=== PATIENT | female | born 1930 | race Hispanic/Latino ===

== ENCOUNTER 2017-11-05 17:03 | Inpatient (IN) | payer MEDICARE, OTHER ==
[2017-11-05 17:11] VITALS: BMI 26.4
[2017-11-05] MEDS ORDERED: Sodium Chloride 0.9% 1,000 ML IV STA (17:55)
--- NOTE | 2017-11-05 18:10 | ED PDOC ---
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 Per the patient, she had been experiencing persistent headache that have been gradual in onset, non-radiating with associated photophobia and phonophobia. According to the patient's daughter, the patient had 2 episodes of non-bloody, non-bilious emesis today. She denies any recent falls, trauma, neck pain, chest pain, shortness of breath, changes in gait or focal weakness in the extremities. The patient admits to lower leg edema that is chronic in nature, but has progressively worsened in the past couple of days. She denies taking any medications for her pain. She denies any syncopal episodes, back pain, fevers, chills, sick contacts or abdominal pain. PCP: Dr. Aakash Gonzalez Symptom Course: Worsening Quality: Aching Severity Level: Moderate Activities at Onset: Light Context: Home Past Medical History - Provider Review Nursing Documentation Reviewed: Yes - Travel History Have you recently traveled outside [place] w/in the past 3 mons?: No - Infectious Disease Hx of Infectious Diseases: None - Cardiac Hx Hypertension: Yes Other/Comment: Leg swelling - Psychiatric Hx Substance Use: No - Surgical History Hx Cholecystectomy: Yes - Anesthesia Hx Anesthesia: Yes Hx Anesthesia Reactions: No Hx Malignant Hyperthermia: No Family/Social History - Physician Review Nursing Documentation Reviewed: Yes Family/Social History: Unknown Family HX Smoking Status: Never Smoked Hx Alcohol Use: No Hx Substance Use: No Allergies/Home Meds Allergies/Adverse Reactions: Allergies No Known Allergies Allergy (Verified 11/05/17 17:22) Home Medications: Home Meds Medication Instructions Recorded Confirmed Celecoxib [Celebrex] 1 tab PO DAILY 11/05/17 11/05/17 Celecoxib [Celebrex] 200 mg PO DAILY 11/05/17 11/05/17 Linaclotide [Linzess] 1 tab PO DAILY 11/05/17 11/05/17 Linaclotide [Linzess] 72 mcg PO DAILY 11/05/17 11/05/17 Losartan/Hydrochlorothiazide 1 each PO DAILY 11/05/17 11/05/17 [Losartan-Hctz 100-25 mg Tab] Losartan/Hydrochlorothiazide 1 tab PO DAILY 11/05/17 11/05/17 [Losartan-Hctz 100-25 mg Tab] Solifenacin Succinate [Vesicare] 1 tab PO DAILY 11/05/17 11/05/17 Valsartan/Hydrochlorothiazide 1 tab PO DAILY 11/05/17 11/05/17 [Diovan Hct 160-12.5 mg Tab] Review of Systems - Review of Systems Eyes: Photophobia. absent: Eye Pain ENT: absent: Hearing Changes, Tinnitus Respiratory: absent: SOB, Cough, Wheezing Cardiovascular: Edema. absent: Chest Pain, Palpitations, Calf Pain Gastrointestinal: Constipation, Nausea, Vomiting. absent: Abdominal Pain Genitourinary Female: absent: Dysuria, Hematuria Musculoskeletal: absent: Arthralgias, Neck Pain Skin: absent: Rash, Skin Lesions Neurological: Headache, Dizziness. absent: Focal Weakness, Gait Changes, Facial Droop, Disequilibrium Physical Exam Vital Signs Reviewed: Yes Vital Signs Temp Pulse Resp BP Pulse Ox 11/05/17 17:03 97.5 F L 81 18 185/93 H 100 Mental Status: Positive for: Alert and Oriented X 3 Finger Stick Blood Glucose: 166 - Systems Exam Head: Present: Atraumatic, Normocephalic Mouth: Present: Moist Mucous Membranes Neck: Present: Normal Range of Motion. No: Meningeal Signs, MIDLINE TENDERNESS , Paraspinal Tenderness Respiratory/Chest: Present: Clear to Auscultation, Good Air Exchange. No: Respiratory Distress, Wheezes Cardiovascular: Present: Regular Rate and Rhythm, Normal S1, S2, Peripheal Pulses Present. No: Murmurs Abdomen: Present: Normal Bowel Sounds. No: Tenderness, Distention, Peritoneal Signs Back: No: CVA Tenderness, Midline Tenderness, Paraspinal Tenderness Lower Extremity: Present: Normal Inspection, Edema, NORMAL PULSES. No: CALF TENDERNESS Neurological: Present: GCS=15, CN II-XII Intact, Speech Normal Skin: Present: Warm, Dry, Rashes Psychiatric: Present: Alert, Oriented x 3, Normal Insight, Normal Concentration Medical Decision Making ED Course and Treatment: Impression 86 yo F w/ GOEL gradual in onset with nausea & emesis NIHSS: 0 Given patient was complaining of GOEL and dizziness, hypertensive urgency/ emergency must be heavily considered. CTH will be performed as well as serial neuro assessments to observe any changes in neuro exam. Differential Diagnoses Include but is not limited to: Migraine Hypertensive urgency/emergency Sepsis PNA UTI CVA(posterior circulation stroke) TIA Plan --Labs --IVF --Reglan --CTH --CXR --EKG Progress Notes 11/05/17 19:21 Patient reports mild relief of headache, but requests additional medication. CTH negative for intracranial findings and CXR unremarkable. Patient and family updated on findings. 11/05/17 19:54 Labs reviewed. No evidence of volume overload noted by normal BNP, CXR and pulmonary exam. Patient noted to have elevated blood pressure. Norvasc ordered. 11/05/17 20:44 Patient reevaluated and feels mild improvement in pain, but still reports dizziness while ambulating. She is encouraged to stay for further Observation with family in agreement. Call placed to Dr. Aakash Gonzalez(PCP) [id number] Arnold who accepts onto his service for continued observation. 11/05/17 21:56 - Lab Interpretations Lab Results: 11/05/17 17:40 11/05/17 17:40 Lab Results 11/05/17 20:25: Urine Color Yellow, Urine Appearance Clear, Urine pH 6.5, Ur Specific Omega 1.010, Urine Protein Negative, Urine Glucose (UA) 100 H, Urine Ketones Trace H, Urine Blood Negative, Urine Nitrate Negative, Urine Bilirubin Negative, Urine Urobilinogen 0.2, Ur Leukocyte Esterase Negative 11/05/17 18:04: pO2 37, VBG pH 7.41, VBG pCO2 41.0, VBG HCO3 26.0, VBG Total CO2 27.3, VBG O2 Sat (Calc) 78.4 H, VBG Base Excess 1.2, VBG Potassium 3.3 L, Glucose 212 H, Lactate 1.2, FiO2 21.0, Sodium 141.0, Chloride 105.0, Venous Blood Potassium 3.3 L 11/05/17 17:40: Sodium 144, Potassium 3.5 L, Chloride 106, Carbon Dioxide 25, Anion Gap 16, BUN 34 H, Creatinine 1.2, Est GFR ( Amer) 51, Est GFR (Non- Af Amer) 42, Random Glucose 200 H, Calcium 9.8, Total Bilirubin 0.7, AST 29, ALT 30, Alkaline Phosphatase 106, Troponin I < 0.01, NT-Pro-B Natriuret Pep 340 , Total Protein 7.5, Albumin 4.4, Globulin 3.1, Albumin/Globulin Ratio 1.4 11/05/17 17:40: PT 11.0, INR 0.97, APTT 23.8 L 11/05/17 17:40: WBC 6.1, RBC 4.40, Hgb 12.6, Hct 36.7, MCV 83.4, MCH 28.6, MCHC 34.3, RDW 13.0, Plt Count 250, MPV 9.1, Gran % 80.3 H, Lymph % (Auto) 14.3 L, Preble % (Auto) 4.4, Eos % (Auto) 0.7 L, Baso % (Auto) 0.3, Gran # 4.88, Lymph # ( Auto) 0.9 L, Preble # (Auto) 0.3, Eos # (Auto) 0.0, Baso # (Auto) 0.02 11/05/17 17:18: POC Glucose (mg/dL) 166 H - RAD Interpretation Radiology Orders: 11/05/17 17:47 HEAD W/O CONTRAST [CT] Stat 11/05/17 17:56 X-RAY [CHEST TWO VIEWS (PA/LAT)] [RAD] Stat - Medication Orders Current Medication Orders: Discontinued Medications Acetaminophen (Tylenol 325mg Tab) 650 mg PO STAT STA Stop: 11/05/17 17:48 Last Admin: 11/05/17 18:11 Dose: 650 mg Amlodipine Besylate (Norvasc) 5 mg PO STAT STA Stop: 11/05/17 19:30 Last Admin: 11/05/17 19:52 Dose: 5 mg Diphenhydramine HCl (Benadryl) 25 mg PO STAT STA Stop: 11/05/17 19:38 Last Admin: 11/05/17 19:52 Dose: 25 mg Metoclopramide HCl 10 mg/ (Sodium Chloride) 52 mls @ 200 mls/hr IV STAT STA Stop: 11/05/17 18:02 Last Admin: 11/05/17 19:01 Dose: 200 mls/hr eMAR Start Stop Document 11/05/17 19:01 GMD (Rec: 11/05/17 19:01 GMD [id number]) Intravenous Solution Start Date 11/05/17 Start Time 19:01 End Date 11/05/17 End time 19:16 Total Infusion Time 15 Sodium Chloride (Sodium Chloride 0.9%) 1,000 mls @ 999 mls/hr IV .Q1H1M STA Stop: 11/05/17 18:55 Last Admin: 11/05/17 18:10 Dose: 999 mls/hr eMAR Start Stop Document 11/05/17 18:10 GMD (Rec: 11/05/17 18:10 GMD [id number]) Intravenous Solution Start Date 11/05/17 Start Time 18:10 End Date 11/05/17 End time 19:11 Total Infusion Time 61 Ketorolac Tromethamine (Toradol) 15 mg IVP STAT STA Stop: 11/05/17 19:30 Last Admin: 11/05/17 19:51 Dose: 15 mg MAR Pain Assessment Document 11/05/17 19:51 CNR (Rec: 11/05/17 19:51 CNR [id number]) Pain Reassessment Is this a pain reassessment? No IVP Administration Document 11/05/17 19:51 CNR (Rec: 11/05/17 19:51 CNR [id number]) Charges for Administration # of IVP Administrations 1 Disposition/Present on Arrival - Present on Arrival Any Indicators Present on Arrival: No History of DVT/PE: No History of Uncontrolled Diabetes: No Urinary Catheter: No History of Decub. Ulcer: No History Surgical Site Infection Following: None - Disposition Have Diagnosis and Disposition been Completed?: Yes Diagnosis: Headache, Dizziness Disposition Time: 20:55 Patient Plan: Observation Patient Problems: Current Active Problems Problem Status Onset Headache Acute Dizziness Acute Condition: IMPROVED
[2017-11-05 18:11] LABS: VENOUS BLOOD GAS BASE EXCESS 1.2 mmol/L (0.0-2.0); VENOUS BLOOD GAS PO2 37 mm/Hg (30-55); VENOUS BLOOD PH 7.41 (7.32-7.43)
[2017-11-05 18:17] LABS: BASO # 0.02 K/mm3 (0.0-2.0); BASO % 0.3 % (0.0-3.0); EOS % 0.7 % (1.5-5.0); GRAN # 4.88 (1.4-6.5); GRAN % 80.3 % (50.0-68.0); HEMOGLOBIN 12.6 g/dL (12.0-16.0); LYMPH # 0.9 (1.2-3.4); LYMPH % 14.3 % (22.0-35.0); MEAN CELL VOLUME 83.4 fl (80.0-105.0); MEAN CORPUSCULAR HEMOGLOBIN 28.6 pg (25.0-35.0); MEAN CORPUSCULAR HGB CONC 34.3 g/dl (31.0-37.0); MEAN PLATELET VOLUME 9.1 fl (7.0-11.0); MONO # 0.3 (0.1-0.6); MONO % 4.4 % (1.0-6.0); RBC 4.4 10^6/uL (3.5-6.1); WHITE BLOOD COUNT 6.1 10^3/ul (4.5-11.0)
[2017-11-05 18:22] LABS: INR 0.97; PARTIAL THROMBOPLASTIN TIME 23.8 Seconds (25.1-36.5)
[2017-11-05 18:24] LABS: ALB/GLOB RATIO 1.4 (1.1-1.8); ALBUMIN 4.4 g/dL (3.0-4.8); ALT/SGPT 30 U/L (7-56); AST/SGOT 29 U/L (14-36); BLOOD UREA NITROGEN 34 mg/dL (7-21); CALCIUM 9.8 mg/dL (8.4-10.5); GFR NON-AFRICAN AMERICAN 42
[2017-11-05 18:36] LABS: B-TYPE NATRIURETIC PEPTIDE 340 pg/mL (0-450); TROPONIN I < 0.01 ng/mL
--- NOTE | 2017-11-05 18:52 | CT ---
Date of service: 11/05/2017 PROCEDURE: CT HEAD WITHOUT CONTRAST. HISTORY: Dizziness and headache. COMPARISON: None available. TECHNIQUE: Axial computed tomography images were obtained through the head/brain without intravenous contrast. Coronal and sagittal reconstructed images. Radiation dose: Total exam DLP = 842.27 mGy-cm. This CT exam was performed using one or more of the following dose reduction techniques: Automated exposure control, adjustment of the mA and/or kV according to patient size, and/or use of iterative reconstruction technique. FINDINGS: HEMORRHAGE: No intracranial hemorrhage. BRAIN: No mass effect or edema. Cortical atrophy and chronic microvascular ischemic change. VENTRICLES: Unremarkable. No hydrocephalus. CALVARIUM: Unremarkable. PARANASAL SINUSES: Unremarkable as visualized. No significant inflammatory changes. MASTOID AIR CELLS: Unremarkable as visualized. No inflammatory changes. OTHER FINDINGS: None. IMPRESSION: No acute intracranial abnormalities. No significant findings to account for the clinical presentation.
--- NOTE | 2017-11-05 18:53 | RAD ---
Date of service: 11/05/2017 HISTORY: GOEL w/ dizziness COMPARISON: No prior. TECHNIQUE: Chest PA and lateral FINDINGS: LUNGS: No active pulmonary disease. PLEURA: No significant pleural effusion identified. No pneumothorax apparent. CARDIOVASCULAR: No radiographic findings to suggest acute or significant cardiovascular disease. OSSEOUS STRUCTURES: No significant abnormalities. VISUALIZED UPPER ABDOMEN: Normal. OTHER FINDINGS: None. IMPRESSION: No active disease.
[2017-11-05] MEDS ORDERED: DiphenhydrAMINE 12.5 mg/5 ml LIQ UD (5 ml) PO STA (19:37)
[2017-11-05 21:31] LABS: PH,URINE 6.5 (4.7-8.0); URINE BILIRUBIN NEGATIVE (NEGATIVE); URINE BLOOD NEGATIVE (NEGATIVE); URINE GLUCOSE (UA) 100 mg/dL (NEGATIVE); URINE LEUKOCYTE ESTERASE NEGATIVE Leu/uL (NEGATIVE); URINE PROTEIN NEGATIVE mg/dL (<30 mg/dL); URINE UROBILINOGEN 0.2 E.U./dL (<1 E.U./dL)
[2017-11-05 21:36] LABS: URINE APPEARANCE CLEAR (CLEAR); URINE COLOR YELLOW (YELLOW)
--- NOTE | 2017-11-06 09:57 | CARD ---
APPROVED REPORT Date of service: 11/05/2017 EKG Measurement Heart [id number] <Conclusion> Normal sinus rhythm Normal ECG
[2017-11-06] MEDS ORDERED: Non Formulary Medication (Losartan/Hydrochlorothiazide [Losartan-Hctz 100-25 Mg Tab] 1 TAB PO SCH (13:45)
[2017-11-06] MEDS ORDERED: Non Formulary Medication (Celecoxib [Celebrex] 200 MG) PO SCH (13:45)
[2017-11-07 06:43] LABS: BASO # 0.03 K/mm3 (0.0-2.0); BASO % 0.5 % (0.0-3.0); EOS # 0.1 (0.0-0.7); EOS % 1.6 % (1.5-5.0); GRAN # 3.58 (1.4-6.5); GRAN % 62.5 % (50.0-68.0); HEMOGLOBIN 12.1 g/dL (12.0-16.0); LYMPH # 1.6 (1.2-3.4); LYMPH % 27.4 % (22.0-35.0); MEAN CELL VOLUME 85.1 fl (80.0-105.0); MEAN CORPUSCULAR HEMOGLOBIN 28.1 pg (25.0-35.0); MEAN CORPUSCULAR HGB CONC 33.1 g/dl (31.0-37.0); MEAN PLATELET VOLUME 8.8 fl (7.0-11.0); MONO # 0.5 (0.1-0.6); RBC 4.3 10^6/uL (3.5-6.1); RED CELL DISTRIBUTION WIDTH 13.6 % (11.5-14.5); WHITE BLOOD COUNT 5.7 10^3/ul (4.5-11.0)
[2017-11-07 07:13] LABS: ALB/GLOB RATIO 1.4 (1.1-1.8); ALBUMIN 3.8 g/dL (3.0-4.8); CALCIUM 9.1 mg/dL (8.4-10.5)
[2017-11-08] MEDS ORDERED: Magnesium Hydroxide Susp 30 ml UD PO PRN (11:52)
--- NOTE | 2017-11-09 12:18 | PN ---
Copied To: Juan Goznalez MD Attending MD: Juan Gonzalez MD DATE: 11/08/2017 DAILY PROGRESS NOTE SUBJECTIVE: The patient is an 86-year-old female with a past medical history positive for hypertension only, who was admitted to the [facility] 2 days ago with dizziness, headache. Onset was rather sudden after eating a piece of leftover salami. The patient was in danger of falling at home, therefore presented to the emergency room, is evaluated and admitted. Slight nystagmus was noted on later gaze. On admission, her urine was growing gram-negative rods. This morning's report shows that it has been identified as E. coli. It is sensitive to cephalosporins, therefore the patient is started on cephalexin 250 mg to be taken twice a day. The patient's headaches have somewhat subsided; however, she has not had a bowel movement in 3 days, therefore milk of magnesia is ordered. When seen, the patient is sitting up in bed. She is eating lunch. She voices waxing and waning complaints of dizziness and mild headache. Her daughter was at bedside during today's visit. She is afebrile. Blood pressure is 129/73, heart rate is 91 beats per minute. Physical exam is essentially unremarkable. We are encouraging physical therapy for ambulation. I am also suggesting Transitional Care Unit evaluation and transfer when a bed becomes available for steadier gait and longer endurance on ambulation. We are continuing the cephalexin for the urinary tract infection. Juan Gonzalez MD
--- NOTE | 2017-11-09 13:56 | PN ---
Copied To: Juan Gonzalez MD Attending MD: Juan Gonzalez MD DATE: 11/07/2017 SUBJECTIVE: The patient is an 86-year-old female with a past medical history positive for hypertension since 1992, had otherwise been in good state of health, feels considerable stress and concern her, her has been in a subacute rehab facility for quite awhile status post cerebrovascular accident. The patient developed rather sudden onset of headache and dizziness on the evening of admission. She presented to the emergency room and was admitted with a diagnosis of possible labyrinthine vertigo and gastroenteritis/food poisoning. During her hospital stay, the patient feels somewhat improved. She is receiving intravenous fluids. She is receiving meclizine three times a day. Her serum CBC and serum chemistries are essentially unremarkable. The patient is not orthostatic with a blood pressure of 135/70 when supine to 145/76 when standing up. Urinalysis is positive for Gram-negative rods. Further identification and sensitivity are yet to follow. The patient when seen today, she is feeling better. She states her headaches are gone. She still maybe slightly dizzy, however, she denies any abdominal pain, diarrhea. We are continuing the current regimen for the patient and she will be reevaluated in the morning. Juan Gonzalez MD : 11/09/2017 11:29:35
--- NOTE | 2017-11-09 20:59 | HP ---
Copied To: Juan Gonzalez MD Attending MD: Juan Gonzalez MD ADMITTING HISTORY AND PHYSICAL HISTORY OF PRESENT ILLNESS: The patient is an 86-year-old female who presents to the emergency room complaining of headache and dizziness. The patient's daughter called me. She was concerned about the patient. She was away on vacation at the time, but saying that the patient was ill. I called to the patient, she said she was indeed having headaches and feeling of dizziness. She was unsteady of herself. I suggested hospitalization. Squad was called. The patient was brought to the emergency room, is evaluated and admitted. On further conversation with the patient it seemed that the patient had some leftover cold cuts, salami to be specific and afterwards started to feel ill. She developed a headache. She denies nausea, vomiting, diarrhea, but became quite dizzy and headachy. PAST MEDICAL HISTORY: The patient is known to have a past medical history positive for hypertension since the early . She is status post cholecystectomy in 1984 and had actually been quite healthy since then. REVIEW OF SYSTEMS: Positive for chronic constipation and occasional feeling of loss of energy. SOCIAL HISTORY: She is . Her at a rehab facility status post CVA, so the patient does live alone. Her daughter and son-in-law are close by in [place] and looking on the patient daily. The patient never smoked. She is a nonalcoholic drinker. ALLERGIES: SHE HAS NO KNOWN MEDICAL ALLERGIES. MEDICATIONS: At the time of admission was taking losartan/hydrochlorothiazide 100/25 mg once a day, Celebrex 200 mg daily for arthritis, Linzess 72 mcg daily for constipation, VESIcare 10 mg daily. PHYSICAL EXAMINATION: VITAL SIGNS: Her blood pressure is 185/93, heart rate is 81 beats per minute. She is afebrile at 97.5 degrees Fahrenheit. GENERAL: She is awake, alert and oriented. HEENT: The examination of the head, eyes, ears, nose and throat reveals slight nystagmus on lateral eye gaze. NECK: Supple with no lymphadenopathy. No goiter. LUNGS: Clear to auscultation and percussion. HEART: Regular. No murmurs are appreciated. ABDOMEN: Soft, nontender with no organomegaly. Normal bowel sounds. EXTREMITIES: Free of cyanosis, clubbing or edema. SKIN: There were no active lesions on the skin. NEUROLOGIC: The patient is awake, alert and oriented and there are no focal neurological signs. LABORATORY DATA: Laboratory studies show the white blood cell count to be 6.1 with a hemoglobin and hematocrit of 12.6 and 36.7 respectively, platelet count is 250. Sodium is 144, potassium is 3.5, blood urea nitrogen is 34, creatinine 1.2, glucose is 200. BNP is 340. Troponins are negative. Chest x-ray showed no acute disease. EKG shows regular sinus rhythm. CAT scan of the head is negative. IMPRESSION: So the patient is admitted with headache and dizziness, possible vertigo/labyrinthitis, possible food poisoning. The patient is admitted. Intravenous fluid is started. We are starting meclizine to be taken three times a day and we will continue to follow the patient closely. Juan Gonzalez MD
--- NOTE | 2017-11-10 17:59 | CON ---
Copied To: Jignesh Glass MD Attending MD: Jignesh Glass MD DATE: 11/10/2017 HISTORY OF PRESENT ILLNESS: This is an 86-year-old white female with past medical history of high blood pressure, high cholesterol. Has been complaining of persistent headache with photophobia. The patient had 2 episodes of vomiting and swelling of the legs and brought to the hospital for further evaluation. PAST MEDICAL HISTORY: Hypertension, high cholesterol. ALLERGY: NO KNOWN DRUG ALLERGY. HOME MEDICATIONS: Celebrex, losartan and valsartan. PHYSICAL EXAMINATION: VITAL SIGNS: Blood pressure 185/93. HEENT: Normocephalic, atraumatic. NECK: Supple. NEUROLOGIC: Awake, orientated to self and place. Cranial nerves II through XII were tested. Pupils reactive. Spontaneous movement of the extremities noted. Deep tendon reflexes 1+. Both plantars downgoing. Sensory appears intact. Cerebellar gait deferred. IMPRESSION: Headache, possibly migraine and dizziness. The patient's headache is better now. CAT scan of the head was done, which was reported negative. Workup in progress. We will follow up. Jignesh Glass MD
[2017-11-11] MEDS ORDERED: Magnesium Hydroxide Susp 30 ml UD PO ONE (11:36)
--- NOTE | 2017-11-13 01:25 | PN ---
Copied To: Dick Gonzalez MD Attending MD: Dick Gonzalez MD DATE: 11/12/2017 SUBJECTIVE: The patient was seen this Saturday at noontime in room 563, bed 2. She is awake, alert and clear. Sitting, eating . She complains of rather severe room spinning dizziness when she turns her head or moves head position, often it make her nauseous; as long as she is still or with eyes closed, she feels better. CT scan of the head was unremarkable. Labs were unremarkable. She is on significant dose of meclizine with no effect. Neurology note was appreciated and further adjust the room spinning dizziness on future notes in addition to the headache. Physical examination is essentially unremarkable. IMPRESSION: Persistent vertigo in spite of the aggressive treatment. Negative CT scan. PLAN: We will order MRI, and add benzodiazepine as a second drug of choice for persistent vertigo. Dick Gonzalez MD
--- NOTE | 2017-11-13 22:10 | PN ---
Copied To: Juan Gonzalez MD Attending MD: Juan Gonzalez MD DATE: 11/13/2017 The patient is an 86-year-old female, who was admitted to the [facility] 7 days ago after a rather sudden onset of dizziness and severe headache. The patient was barely able to ambulate at home, therefore she presented to the emergency room and was admitted. Slight nystagmus was noted on lateral gaze. It was also found that the onset of symptoms were shortly after eating some cold cuts in her apartment, and there may be some associated gastritis/food poisoning associated with this. During her hospital stay, her symptoms have been waxing and waning. The headaches have been rather severe at times. She was evaluated by Dr. Glass during the hospital stay. CAT scan of the head was negative. MRI of the brain was done; however, the report is still pending. The patient was treated with meclizine 50 mg three times a day for the past 7 days; however, no adequate result was noted. Therefore, the patient has been started on midodrine 5 mg three times a day, this was started earlier this morning, and when seen this evening with the daughter and son-in-law at bedside, the patient was perhaps slightly improved. We will continue with the midodrine along with the Antivert through tomorrow. Continue with attempts at physical therapy to see if there is some improvement. As it is now, the patient is still a danger to herself. She lives alone. Her is in a subacute rehab facility status post cerebrovascular accident. Her daughter lives near by and usually follows up with the patient; however, tomorrow her is scheduled for surgery and the daughter will not be available to receive the patient at home. So, we are hoping to note some improvement in ambulation; as of now. The patient only walked 10 feet with a rolling walker. Her headache has somewhat subsided. The patient to be reevaluated in the morning and hopeful of discharge on Saturday. Juan Gonzalez MD ERICA
--- NOTE | 2017-11-14 09:42 | MRI ---
Date of service: 11/12/2017 PROCEDURE: MRI BRAIN WITHOUT CONTRAST HISTORY: Vertigo COMPARISON: Noncontrast head CT from 11/05/2017. TECHNIQUE: Multiplanar, multisequence MR images of the brain were obtained without intravenous contrast enhancement. FINDINGS: HEMORRHAGE: None DWI: No evidence of an acute or early subacute infarction. BRAIN PARENCHYMA: There are moderate chronic microangiopathic changes. There is no mass, mass effect or abnormal extra-axial fluid collection. There is no territorial infarction. The midline sagittal structures are normal. VENTRICLES: There is mild age-related global parenchymal volume loss and proportionate enlargement of the ventricles and cortical sulci. CRANIUM: There is normal bone marrow signal pattern. ORBITS: Grossly unremarkable. PARANASAL SINUSES/MASTOIDS: The paranasal sinuses are predominantly clear. The mastoid air cells are underdeveloped. VASCULAR SYSTEM: There are normal signal voids in the larger intracranial arteries. OTHER FINDINGS: None. IMPRESSION: No acute intracranial abnormality. Moderate chronic microangiopathic changes and mild age-related global parenchymal volume loss.
--- NOTE | 2017-11-14 22:23 | PN ---
Copied To: Dick Goznalez MD Attending MD: Dick Gonzalez MD DATE: 11/14/2017 SUBJECTIVE: The patient was seen this morning in room 563, bed 2. Unfortunately, she remains quite dizzy. She describes room spinning dizziness, made worse by turning the head and with movement. I spoke with physical therapist, who has been trying to ambulate with her daily. She does move about, but needs assistance of two as she remains very unsteady on her feet because of dizziness. She has been receiving high dose of meclizine 50 mg, Valium was added as benzodiazepines would be the second drug of choice. She had negative CT scan. Negative MRI of the brain and was seen by Neurology. Her headaches continue, but to a much lesser degree. PHYSICAL EXAMINATION: Essentially unchanged from above. LUNGS: Show good aeration. HEART: Regular. Not tachycardic. Later in the afternoon, nurses called me reporting an episode of lethargy in the patient. PLAN: Since this new lethargy may be related to the benzodiazepines, we will discontinue the Valium. Because of the lethargy, I will also decrease the dose of meclizine from 50 t.i.d. to 12.5 mg t.i.d. I will ask Neurology to reevaluate the patient in the morning and she as well as check the CT scan and CAT scan. I will also add some recheck morning labs including a sed rate. I doubt temporal arteritis would give this type of presentation, but we will check sed rate nonetheless. Dick Gonzalez MD
[2017-11-15 06:53] LABS: BASO # 0.04 K/mm3 (0.0-2.0); BASO % 0.9 % (0.0-3.0); EOS # 0.1 (0.0-0.7); GRAN # 2.36 (1.4-6.5); GRAN % 50.1 % (50.0-68.0); HEMOGLOBIN 11.9 g/dL (12.0-16.0); LYMPH # 1.7 (1.2-3.4); MEAN CELL VOLUME 85.1 fl (80.0-105.0); MEAN CORPUSCULAR HEMOGLOBIN 27.7 pg (25.0-35.0); MEAN CORPUSCULAR HGB CONC 32.6 g/dl (31.0-37.0); MONO # 0.5 (0.1-0.6); RBC 4.29 10^6/uL (3.5-6.1); RED CELL DISTRIBUTION WIDTH 12.8 % (11.5-14.5); WHITE BLOOD COUNT 4.7 10^3/ul (4.5-11.0)
[2017-11-15 07:19] LABS: ALB/GLOB RATIO 1.3 (1.1-1.8); ALBUMIN 3.7 g/dL (3.0-4.8); CALCIUM 9.3 mg/dL (8.4-10.5)
[2017-11-15] MEDS ORDERED: Dexamethasone 4 MG in Sodium Chloride 0.9% 50 ML IV ONE (09:47)
--- NOTE | 2017-11-15 17:30 | PN ---
Copied To: Reggie Glass MD Attending MD: Reggie Glass MD DATE: 11/15/2017 NEUROLOGY FOLLOWUP CHIEF COMPLAINT: Follow up for dizziness. SUBJECTIVE: The patient is seen and examined at bedside. She is describing that the dizziness is more of spinning sensation of the room especially when she turns her head to the right or left direction. She was ambulating today with physical therapy, has felt much better today, even felt much better after one dose of dexamethasone 4 mg IV push, which will help. Her meclizine was decreased today to 12.5 p.o. t.i.d. which is much better and which does not . Her MRI of the brain showed no acute intracranial abnormality, most likely she is having underlying vestibular neuritis. PAST MEDICAL HISTORY: History of hypertension. REVIEW OF SYSTEMS: Fourteen-point review of systems is negative except as per the HPI. FAMILY HISTORY: Noncontributory. SOCIAL HISTORY: No illicit drug use, smoking, or EtOH abuse. ALLERGIES: NO KNOWN DRUG ALLERGIES. MEDICATIONS: Reviewed by nurse's reconciliation sheet. FAMILY HISTORY: Noncontributory. LABORATORY DATA: Sodium is 144, potassium 4, chloride 105, carbon dioxide 30, BUN of 31, creatinine of 1.2, random glucose of 95. PHYSICAL EXAMINATION: GENERAL: The patient is sitting up in bed, in no acute distress. HEENT: Head is atraumatic, normocephalic. PERRLA. Extraocular muscles intact. NECK: Supple. No JVD. No adenopathy noted. LUNGS: Clear to auscultation. No adventitious sounds. HEART: S1 and S2. Normal rate and rhythm. No murmurs, rubs, or gallops. ABDOMEN: Soft, nontender, and nondistended. Bowel sounds are present. EXTREMITIES: No clubbing. No cyanosis. Peripheral pulses 2+ felt bilaterally. NEUROLOGIC: The patient is alert and oriented to person, place, month, and year. Thought process is slow. Recall after 5 minutes is 1/3. Poor attention span and slow thought process. Cranial nerves II through XII intact. Motor: Moves all extremities equally. No pronator drifts seen. Sensory: Light touch, pinprick, proprioception, and vibration are intact. DTRs are 2+ throughout. Coordination: Oxknaa-oh-cuam intact. No dysmetria noted. Gait is deferred for now. Very limited nystagmus on the right and left direction. VITAL SIGNS: Reviewed. IMPRESSION AND PLAN: Her dizziness in terms of spinning sensation of the room more of vestibular neuritis. MRI of the brain showed no acute intracranial abnormality. 1. We will recommend meclizine 12.5 mg p.o. b.i.d. at the acute onset of dizziness. 2. We will give one more dose of dexamethasone 4 mg IV push tomorrow, on 11/16/2017. 3. She will need underlying outpatient vestibular therapy which will help her much better and continue with current physical therapy. Thank you for this followup. Reggie Glass MD
[2017-11-15 22:24] VITALS: RESP 18
[2017-11-16 07:29] VITALS: BP 135/79; PULSE 100; TEMP 97.7; O2SAT 96
[2017-11-16] MEDS ORDERED: Dexamethasone 4 MG in Sodium Chloride 0.9% 50 ML IV ONE (08:00)
--- NOTE | 2017-11-16 08:26 | CT ---
Date of service: 11/16/2017 PROCEDURE: CT HEAD WITHOUT CONTRAST. HISTORY: SBP> 200 and dizziness COMPARISON: 11/06/2027 the. TECHNIQUE: Axial computed tomography images were obtained through the head/brain without intravenous contrast. Radiation dose: Total exam DLP = 933.03 mGy-cm. This CT exam was performed using one or more of the following dose reduction techniques: Automated exposure control, adjustment of the mA and/or kV according to patient size, and/or use of iterative reconstruction technique. FINDINGS: HEMORRHAGE: No intracranial hemorrhage. BRAIN: There are moderate chronic microangiopathic changes. There is no mass, mass effect or abnormal extra-axial fluid collection. There is no territorial infarction. The midline sagittal structures are normal. VENTRICLES: There is mild age-related global parenchymal volume loss and proportionate enlargement of the ventricles and cortical sulci. CALVARIUM: Unremarkable. PARANASAL SINUSES: Unremarkable as visualized. No significant inflammatory changes. MASTOID AIR CELLS: Unremarkable as visualized. No inflammatory changes. OTHER FINDINGS: None. IMPRESSION: No acute intracranial abnormality. No significant interval change A preliminary report was provided by [employer] [facility].
--- NOTE | 2017-11-16 16:10 | PN ---
Copied To: Dick Gonzalez MD Attending MD: Dick Gonzalez MD DATE: 11/15/2017 SUBJECTIVE: The patient was seen this Saturday morning in room 563, bed 2. She still reports severe dizziness, room spinning, worse when she turns her head, unable to stand, unable to walk. With physical therapy she is assisted by two with very poor balance. I spoke withe neurologist Dr. Reggie Glass about the case. CT scan and MRI were reviewed. He suggested a single dose of IV dexamethasone. We will proceed . Later in the evening, I returned to see the patient. She has improved somewhat clinically. Her strength seems better. Certainly the lethargy and fatigue noted yesterday and the day before has improved with decrease in her medications including meclizine and Valium. At this point in time, I will also discontinue some other medicines. Continue her blood pressure medicines and follow closely in the morning. I had a lengthy conversation with the patient's daughter about her condition up-to-date. Explained the vestibular physical therapy exercises that she will be doing at home and will be assessed in the morning. Dick Gonzalez MD
--- NOTE | 2017-11-17 00:54 | DS ---
Copied To: Dick Gonzalez MD Attending MD: Dick Gonzalez MD HISTORY OF PRESENT ILLNESS: This is an 86-year-old woman who presented with severe dizziness and has reported room spinning dizziness with headache, made worse by changes in head position. She was admitted to the hospital. CT scan was unremarkable. Treating it with increasing doses of meclizine, then Valium, then . MRI was done, which was unremarkable. Neurology consult was performed initially confirming the diagnosis and advising continued course of treatment. Repeat evaluation was done a few days later because of the patient's persistent severe symptoms to the point where she was having difficulty and required two physical therapists for assistance with balance. Her strength was good. Routine neurologic evaluation recommended 4 mg of IV dexamethasone that was given yesterday and today, that seemed to provide some relief, so that the patient was slightly improved today. I reviewed vestibular exercises with the patient's daughter that she would do at home and we will arrange for physical therapy. She was ready for discharge to home today, 11/16/2017 after 10-day hospital stay for severe unrelenting persistent room spinning vertigo, dizziness. FINAL DISCHARGE DIAGNOSES: 1. Vestibular vertigo. 2. Hypertension. PLAN: The patient will follow up with us in the office within a week. If she is unable to come to the office, we will make a house call to her home. Dick Gonzalez MD
== END 2017-11-16 13:56 | disposition home or self-care (01) | DRG 149 ==
LOC: ED 17:03 → ERH 21:04 → 5RNO 22:47 → OBSVTOIN 11-06 13:41
PROVIDERS: ADMIT Internal Medicine; ATTEND Internal Medicine
DX: H81.20 Vestibular neuronitis, unspecified ear (principal); N39.0 Urinary tract infection, site not specified; R42 Dizziness and giddiness; E78.00 Pure hypercholesterolemia, unspecified; E78.5 Hyperlipidemia, unspecified; I10 Essential (primary) hypertension; I16.0 Hypertensive urgency; B96.20 Unspecified Escherichia coli [E. coli] as the cause of diseases classified elsewhere; R29.700 NIHSS score 0; Z90.49 Acquired absence of other specified parts of digestive tract

== ENCOUNTER 2018-04-14 14:03 | Observation (INO) | payer MEDICARE, OTHER ==
--- NOTE | 2018-04-14 14:20 | ED PDOC ---
Arrival/HPI - General Chief Complaint: Weakness/Neurological Deficit Time Seen by Provider: 04/14/18 14:07 Historian: Patient, EMS - History of Present Illness Time/Duration: Prior to Arrival Symptom Onset: Sudden Symptom Course: Improving Activities at Onset: Rest Associated Symptoms (Text): 04/14/18 14:18 Patient reports generalized weakness and fatigue along with dizziness and lightheadedness. She felt as if she were going to faint. She sat on the bed and then felt herself fall back into the bed and had a syncopal episode. She denies chest pain palpitations or dyspnea. No abdominal pain nausea or vomiting. No fever or chills. No injury or trauma. Past Medical History - Provider Review Nursing Documentation Reviewed: Yes - Infectious Disease Hx of Infectious Diseases: None - Cardiac Hx Hypertension: Yes - Musculoskeletal/Rheumatological Hx Falls: Yes - Psychiatric Hx Substance Use: No - Surgical History Hx Cholecystectomy: Yes - Anesthesia Hx Anesthesia: Yes Hx Anesthesia Reactions: No Hx Malignant Hyperthermia: No Family/Social History - Physician Review Nursing Documentation Reviewed: Yes Family/Social History: Unknown Family HX Smoking Status: Never Smoked Hx Alcohol Use: No Hx Substance Use: No Allergies/Home Meds Allergies/Adverse Reactions: Allergies No Known Allergies Allergy (Verified 11/05/17 17:22) Home Medications: Home Meds Medication Instructions Recorded Confirmed Celecoxib [Celebrex] 200 mg PO DAILY 11/05/17 04/14/18 Losartan/Hydrochlorothiazide 1 each PO DAILY 11/05/17 04/14/18 [Losartan-Hctz 100-25 mg Tab] Solifenacin Succinate [Vesicare] 1 tab PO DAILY 11/05/17 04/14/18 ALPRAZolam [Xanax] 0.25 mg PO BID PRN 04/14/18 04/14/18 Fludrocortisone [Florinef Acetate] 0.1 mg PO DAILY 04/14/18 04/14/18 Lubiprostone [Amitiza] 24 mcg PO DAILY 04/14/18 04/14/18 Meclizine [Antivert] 12.5 mg PO TID PRN 04/14/18 04/14/18 Memantine HCl/Donepezil HCl 1 each PO DAILY 04/14/18 04/14/18 [Namzaric 28 mg-10 mg Capsule] Review of Systems - Physician Review All systems were reviewed & negative as marked: Yes - Review of Systems Constitutional: Fatigue. absent: Fevers Respiratory: absent: SOB, Cough, Wheezing Cardiovascular: Syncope. absent: Chest Pain, Palpitations Gastrointestinal: absent: Abdominal Pain, Diarrhea, Nausea, Vomiting, Anorexia Neurological: Dizziness. absent: Headache, Focal Weakness, Gait Changes Physical Exam Temperature: Afebrile Blood Pressure: Normal Pulse: Regular Respiratory Rate: Normal Appearance: Positive for: Well-Appearing, Non-Toxic, Comfortable Pain Distress: None Mental Status: Positive for: Alert and Oriented X 3 - Systems Exam Head: Present: Atraumatic, Normocephalic Pupils: Present: PERRL Extroacular Muscles: Present: EOMI Conjunctiva: Present: Normal Ears: Present: NORMAL TM, Normal Canal. No: Erythema, TM Bulging Mouth: Present: Moist Mucous Membranes Pharnyx: No: ERYTHEMA, EXUDATE, TONSILS ENLARGED Neck: Present: Normal Range of Motion. No: MIDLINE TENDERNESS, Paraspinal Tenderness Respiratory/Chest: Present: Clear to Auscultation, Good Air Exchange, Decreased Breath Sounds. No: Respiratory Distress, Accessory Muscle Use Cardiovascular: Present: Regular Rate and Rhythm, Normal S1, S2. No: Murmurs Abdomen: No: Tenderness, Distention, Peritoneal Signs, Rebound, Guarding Upper Extremity: Present: Normal Inspection. No: Cyanosis, Edema Lower Extremity: Present: Normal Inspection. No: Edema Neurological: Present: GCS=15, CN II-XII Intact, Speech Normal, Motor Func Grossly Intact, Normal Sensory Function, Normal Cerebellar Funct Skin: Present: Warm, Dry, Normal Color. No: Rashes Psychiatric: Present: Alert, Oriented x 3, Normal Insight, Normal Concentration Medical Decision Making ED Course and Treatment: 04/14/18 14:26 EKG shows normal sinus rhythm rate approximately [address] or T-wave changes. 04/14/18 16:[address] Kim kim. - RAD Interpretation Radiology Orders: 04/14/18 14:16 HEAD W/O CONTRAST [CT] Stat CHEST PORTABLE [RAD] Stat CT scan of the head as read by the radiologist shows no acute findings. Chest one view shows no infiltrate effusion or cardiomegaly. 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 Ulcer: No History Surgical Site Infection Following: None - Disposition Have Diagnosis and Disposition been Completed?: Yes Diagnosis: Dizziness, Syncope, Dehydration Disposition: HOSPITALIZED Disposition Time: 15:55 Patient Plan: Observation, Telemetry Patient Problems: Current Active Problems Problem Status Onset Dehydration Acute Dizziness Acute Syncope Acute Condition: GOOD
[2018-04-14 14:47] LABS: BASO # 0.02 K/mm3 (0.0-2.0); BASO % 0.3 % (0.0-3.0); EOS # 0.1 (0.0-0.7); EOS % 0.6 % (1.5-5.0); GRAN # 6.5 (1.4-6.5); GRAN % 82.4 % (50.0-68.0); HEMOGLOBIN 12.4 g/dL (12.0-16.0); LYMPH # 0.8 (1.2-3.4); LYMPH % 10.5 % (22.0-35.0); MEAN CELL VOLUME 87.2 fl (80.0-105.0); MEAN CORPUSCULAR HEMOGLOBIN 28.4 pg (25.0-35.0); MEAN CORPUSCULAR HGB CONC 32.5 g/dl (31.0-37.0); MEAN PLATELET VOLUME 9.3 fl (7.0-11.0); MONO # 0.5 (0.1-0.6); MONO % 6.2 % (1.0-6.0); RBC 4.37 10^6/uL (3.5-6.1); WHITE BLOOD COUNT 7.9 10^3/uL (4.5-11.0)
[2018-04-14 14:55] LABS: INR 1.05
[2018-04-14 14:57] LABS: ALB/GLOB RATIO 1.3 (1.1-1.8); ALBUMIN 4.1 g/dL (3.0-4.8); ALT/SGPT 28 U/L (7-56); AST/SGOT 29 U/L (14-36); BLOOD UREA NITROGEN 37 mg/dL (7-21); CALCIUM 9.4 mg/dL (8.4-10.5); GFR NON-AFRICAN AMERICAN 33
[2018-04-14] MEDS ORDERED: Sodium Chloride 0.9% 500 ML IV ONE (15:03)
[2018-04-14 15:08] LABS: TROPONIN I < 0.01 ng/mL
--- NOTE | 2018-04-14 15:23 | CT ---
Date of service: 04/14/2018 PROCEDURE: CT HEAD WITHOUT CONTRAST. HISTORY: syncope COMPARISON: 11/16/2017 TECHNIQUE: Axial computed tomography images were obtained through the head/brain without intravenous contrast. Radiation dose: Total exam DLP = 884.56 mGy-cm. This CT exam was performed using one or more of the following dose reduction techniques: Automated exposure control, adjustment of the mA and/or kV according to patient size, and/or use of iterative reconstruction technique. FINDINGS: HEMORRHAGE: No intracranial hemorrhage. BRAIN: No mass effect or edema. Chronic microvascular changes are seen in the periventricular white matter and basal ganglia VENTRICLES: Unremarkable. No hydrocephalus. CALVARIUM: Unremarkable. PARANASAL SINUSES: There is a fluid level in the right maxillary sinus consistent with acute sinusitis. MASTOID AIR CELLS: Unremarkable as visualized. No inflammatory changes. OTHER FINDINGS: None. IMPRESSION: No acute intracranial findings
--- NOTE | 2018-04-14 15:50 | RAD ---
Date of service: 04/14/2018 PROCEDURE: CHEST RADIOGRAPH, 1 VIEW HISTORY: syncope COMPARISON: 11/05/2017 FINDINGS: LUNGS: Clear. PLEURA: No pneumothorax or pleural fluid seen. CARDIOVASCULAR: Mild aortic calcification normal. OSSEOUS STRUCTURES: No significant abnormalities. VISUALIZED UPPER ABDOMEN: Normal. OTHER FINDINGS: None. IMPRESSION: No active disease.
--- NOTE | 2018-04-14 18:24 | CARD ---
APPROVED REPORT Date of service: 04/14/2018 EKG Measurement Heart [id number] <Conclusion> Normal sinus rhythm Normal ECG
[2018-04-14 20:02] VITALS: BMI 25.4
[2018-04-14] MEDS ORDERED: Influenza Vaccine 60 mcg/0.5 mL SYR (4YR UP) IM ONE (20:02)
[2018-04-14] MEDS ORDERED: Pneumococcal 23-Valent Vaccine IM ONE (20:02)
[2018-04-15] MEDS: MEMANTINE HCL PO SCH (09:22)
[2018-04-15] MEDS: CELECOXIB 200 MG PO SCH (09:22)
[2018-04-15] MEDS: LUBIPROSTONE 24 MCG PO SCH (09:22)
[2018-04-15] MEDS: DONEPEZIL HCL PO SCH (09:22)
[2018-04-15] MEDS: SOLIFENACIN SUCCINATE 5 MG PO SCH (09:23)
[2018-04-15] MEDS ORDERED: Non Formulary Medication (Losartan/Hydrochlorothiazide [Losartan-Hctz 100-25 Mg Tab] 1 EAC PO SCH (10:00)
--- NOTE | 2018-04-15 11:50 | HP ---
DATE OF EXAM: 04/15/2018 HISTORY OF PRESENT ILLNESS: The patient is an 87-year-old female who presents to the emergency room after suffering a syncopal episode at home. The patient apparently was feeling well. She was helping her daughter in the kitchen filling details and preparing dinner. She suddenly became very weak over, and a fell and passed out. Loss of consciousness was only for 1 or 2 seconds. Her daughter was right there to catch her and hold her. The squad was called. The patient was brought to the emergency room and is admitted. PAST MEDICAL HISTORY: The patient is known to have a past medical history positive for hypertension. PAST SURGICAL HISTORY: She is status post cholecystectomy. She was hospitalized last in 10/2017 for weakness, vertigo and headache. She apparently was doing well since that time. REVIEW OF SYSTEMS: Otherwise unremarkable. SOCIAL HISTORY: She is a nonsmoker, nonalcoholic drinker. ALLERGIES: HAS NO KNOWN MEDICAL ALLERGIES. MEDICATIONS: At the time of admission included Celebrex 200 mg daily, losartan hydrochlorothiazide 100/25 daily, VESIcare 1 tablet daily, Xanax 0.25 twice a day, Florinef 0.1 mg daily, Amitiza 24 mcg daily, Antivert 12.5 mg three times a day and namzaric 28/10 mg daily. PHYSICAL EXAMINATION: Head, eyes, ears, nose and Throat: Unremarkable. NECK: Supple with no lymphadenopathy. No goiter. There is no nystagmus on extraocular movement of the eyes. LUNGS: Clear to auscultation and percussion. HEART: Regular. No murmurs are appreciated. ABDOMEN: Soft and nontender with no organomegaly. EXTREMITIES: Free of cyanosis, clubbing or edema. NEUROLOGICAL: The patient is intact. EKG showed regular sinus rhythm with no ST-T wave changes. Chest x-ray showed no acute disease. CT scan of the head also showed no acute findings. LABORATORY STUDIES: White blood cell count was normal at 7.9, hemoglobin and hematocrit 12.4 and 38.1 respectively, platelet count is 248. Serum chemistries show the blood urea nitrogen and creatinine to be slightly elevated at 37 and 1.5 respectively. Sodium is 141, potassium is 3.6, glucose is 147. Troponin is less than 0.01. Liver enzymes are normal. So the patient is admitted with syncope. She appears quite stable. She will be reevaluated in the morning. Juan Gonzalez MD
--- NOTE | 2018-04-15 16:37 | US ---
PROCEDURE: Bilateral carotid artery duplex ultrasound HISTORY: Carotid stenosis syncope PHYSICIAN(S): Gustavo Martin MD. TECHNIQUE: Duplex sonography and color-flow Doppler were used to evaluate the carotid bifurcations and limited segments of the vertebral arteries bilaterally. FINDINGS: There is mild to moderate smooth heterogeneous plaque noted at the carotid bifurcations bilaterally. The peak systolic velocity in the proximal right internal carotid artery is 83 cm/sec. This corresponds to a 20 to 39% proximal right ICA stenosis. Normal systolic velocities are noted in the proximal right external carotid artery. There is antegrade flow in the right vertebral artery. The peak systolic velocity in the proximal left internal carotid artery is 114 cm/sec. This corresponds to a 40-59 percent proximal left ICA stenosis. Normal systolic velocities are noted in the proximal left external carotid artery. There is antegrade flow in the left vertebral artery. IMPRESSION: 1. 40-59 percent proximal left ICA stenosis. 2. 20-39 percent proximal right ICA stenosis. 3. Antegrade flow in both vertebral arteries
--- NOTE | 2018-04-15 23:48 | PN ---
DATE: 04/15/2018 DAILY PROGRESS NOTE The patient was seen this Saturday in room 272, bed 2. Resting comfortably in bed. There has been no further lightheadedness spells, dizzy spells or syncopal episodes. I spoke with her again regarding the issues that involved her hospital admission. She was at home and felt weak, lying down, became profusely diaphoretic and dizzy perhaps lost consciousness for a second. Called her daughter and came to the emergency room. She recalls feeling the symptoms are coming on and the diaphoresis making the diagnosis of vagal syncope most likely. She is now comfortable. No further episodes. We will check carotid ultrasound. Then, she should be ready for discharge to home tomorrow morning. Later this evening I spoke to the patient's daughter. Pt. was hospitalized with similar symptoms earlier last year and has had similar, milder episodes at home. Dick Gonzalez MD ERICA
[2018-04-16] MEDS: MEMANTINE HCL PO SCH (09:01)
[2018-04-16] MEDS: LUBIPROSTONE 24 MCG PO SCH ×2 (09:01→09:06)
[2018-04-16] MEDS: CELECOXIB 200 MG PO SCH (09:01)
[2018-04-16] MEDS: DONEPEZIL HCL PO SCH (09:01)
[2018-04-16] MEDS: SOLIFENACIN SUCCINATE 5 MG PO SCH (09:01)
[2018-04-16 22:45] VITALS: RESP 20
[2018-04-17 05:58] VITALS: BP 154/74; PULSE 62; TEMP 98.4; O2SAT 98
== END 2018-04-17 09:34 | disposition home health service (06) ==
LOC: ED 14:03 → ERH 15:52 → 2RSO 16:58
PROVIDERS: ADMIT Internal Medicine; ATTEND Internal Medicine
DX: E86.0 Dehydration (principal); R55 Syncope and collapse; I10 Essential (primary) hypertension; Z90.49 Acquired absence of other specified parts of digestive tract
CPT/HCPCS: 70450; 71045; 80053; 82550; 82948; 83615; 83735; 84100; 84484; 85025; 85610; 85730; 93005; 93880; 96360; 97116; 97161; 97530; 99285; G0378; G8978; G8979; J7040